=== PATIENT | male | born 1940 | race Caucasian/White ===

== ENCOUNTER → 2018-03-29 15:29 | Outpatient (CLI) | payer MEDICARE, OTHER, SELFPAY ==
[2018-03-29 18:49] LABS: RBC Urine None Seen (0-5/HPF)
[2018-03-29 19:04] LABS: Bilirubin Urine UA NEGATIVE (NEGATIVE); Color Urine UA YELLOW; Glucose Urine UA NEGATIVE (Normal); Ketones Urine UA NEGATIVE (NEGATIVE); Leukocyte Esterase Urine UA 2+ (NEGATIVE); Nitrite Urine UA Negative (Negative); Occult Blood Urine UA TRACE-LYSED (Negative); Protein Urine UA TRACE (Negative); Urobilinogen Urine UA 0.2 E.U./dL (0.2)
[2018-03-29 19:06] LABS: Appearance Urine UA SL CLOUDY
[2018-03-29 19:16] LABS: Bacteria Urine Moderate (10-30); Culture Indicated Urine Specimen Cultured; Squamous Epithelial Cell Urine None Seen; WBC Urine 30-100/HPF (0-5/HPF)
== END ==
PROVIDERS: PCP Family Medicine; Visit Provider Internal Medicine
DX: R30.0 Dysuria (principal)
CPT/HCPCS: 81001; 87077; 87086; 87186

== ENCOUNTER → 2018-04-09 10:07 | Outpatient (CLI) | payer MEDICARE, OTHER, SELFPAY ==
--- NOTE | 2018-04-09 10:10 | DI.US.S_ITS ---
PROCEDURE: US RENAL COMPLETE INDICATIONS: DYSURIA TECHNIQUE: Real-time scanning was performed of the kidneys and bladder, with image documentation. COMPARISON: None. FINDINGS: Kidneys: Kidneys are normal in size. Right kidney measures 12.4 cm long; left kidney measures 11.4 cm long. Right renal cortical thickness is 1.7 cm; left renal cortical thickness is 1.7 cm. Renal cortical echotexture is normal. No hydronephrosis or nephrolithiasis. No suspicious solid mass lesions. Bladder: Pre-void bladder volume is 151 mL. Post-void residual is 20 mL. Pre-void images demonstrate no intraluminal masses or stones. On pre-void images, bilateral ureteral jets are noted with color Doppler interrogation. (Of note, ureteral jets may not be detectable in up to 25% of cases due to insufficient differences in specific gravity between ureteral and bladder urine). Miscellaneous: No free pelvic fluid. IMPRESSION: Normal renal ultrasound, 20 cc post void residual within the bladder after initiation of the study at which time the prevoid volume was 151 cc. Dictated by: Abhishek Diaz M.D. on 04/09/2018 at 12:58 Approved by: Abhishek Diaz M.D. on 04/09/2018 at 12:58
== END ==
PROVIDERS: PCP Family Medicine; Visit Provider Internal Medicine
DX: R30.0 Dysuria (principal)
CPT/HCPCS: 76770

== ENCOUNTER → 2018-09-10 11:42 | Outpatient (CLI) | payer MEDICARE, OTHER, SELFPAY ==
[2018-09-10 12:05] LABS: Add Manual Diff / Slide Review NO; Basophils Percent Auto 0.5 % (0-2); Eosinophils Percent Auto 1.2 % (2-4); Hematocrit 41.8 % (41-53); Hemoglobin 14.2 g/dL (13.5-17.5); Lymphocytes Percent Auto 30.1 % (25-40); Mean Corpuscular HGB Conc 34.1 % (30-36); Mean Corpuscular Hemoglobin 30.9 PG (26-34); Mean Corpuscular Volume 90.5 fL (80-100); Monocytes Percent Auto 14.2 % (3-14); Neutrophils Absolute Auto 1700 /uL (1500-7000); Platelet Count 184 X10^3/uL (150-400); Red Blood Cell Count 4.62 X10^6/uL (4.5-5.9); Red Cell Distribution Width 13.6 % (11.6-14.8); White Blood Cell Count 3.1 X10^3/uL (4.5-11.0)
[2018-09-10 12:41] LABS: Gamma Glutamyl Transpeptidase 48 U/L (15-73)
== END ==
PROVIDERS: PCP Family Medicine; Visit Provider Family Medicine
DX: D50.9 Iron deficiency anemia, unspecified (principal); R74.8 Abnormal levels of other serum enzymes; T42.0X5A Adverse effect of hydantoin derivatives, initial encounter
CPT/HCPCS: 36415; 82977; 85025

== ENCOUNTER → 2023-08-13 14:59 | Outpatient (CLI) | payer OTHER, SELFPAY ==
[2023-08-13 18:34] LABS: Appearance Urine UA CLEAR; Bilirubin Urine UA NEGATIVE (NEGATIVE); Color Urine UA YELLOW; Glucose Urine UA NEGATIVE (Negative); Ketones Urine UA NEGATIVE (NEGATIVE); Leukocyte Esterase Urine UA NEGATIVE (NEGATIVE); Nitrite Urine UA NEGATIVE (Negative); Occult Blood Urine UA NEGATIVE (Negative); Protein Urine UA NEGATIVE (Negative); Urobilinogen Urine UA 0.2 E.U./dL (0.2); pH Urine UA 5.5 (4.5-8.0)
[2023-08-13 18:41] LABS: Bacteria Urine None Seen; Culture Indicated Urine Cult Not Indicated; RBC Urine 0-1/HPF (0-5/HPF); Squamous Epithelial Cell Urine 0-1 /HPF (0-5/HPF); WBC Urine None Seen (0-5/HPF)
== END ==
PROVIDERS: PCP Family Medicine; Referring Provider Family Medicine; Visit Provider Family Medicine
DX: R30.0 Dysuria (principal)
CPT/HCPCS: 81001

== ENCOUNTER → 2023-08-20 06:51 | Outpatient (CLI) | payer OTHER, SELFPAY ==
[2023-08-20 09:19] LABS: Add Manual Diff / Slide Review NO; Basophils Absolute Auto 0 /uL (0-100); Basophils Percent Auto 0.6 % (0-2); Eosinophils Absolute Auto 100 /uL (0-450); Eosinophils Percent Auto 2.1 % (2-4); Hematocrit 38.1 % (41-53); Lymphocytes Absolute Auto 900 /uL (1100-4500); Lymphocytes Percent Auto 27.3 % (25-40); Mean Corpuscular HGB Conc 34.3 % (30-36); Mean Corpuscular Hemoglobin 30.6 PG (26-34); Mean Corpuscular Volume 89.2 fL (80-100); Monocytes Absolute Auto 400 /uL (0-900); Monocytes Percent Auto 13.2 % (3-14); Neutrophils Absolute Auto 1900 /uL (1500-7000); Neutrophils Percent Auto 56.8 % (50-75); Platelet Count 179 X10^3/uL (150-400); Red Blood Cell Count 4.27 X10^6/uL (4.5-5.9); Red Cell Distribution Width 14.7 % (11.6-14.8); White Blood Cell Count 3.3 X10^3/uL (4.5-11.0)
[2023-08-20 09:44] LABS: Alanine Aminotransferase 18 IU/L (<50); Albumin Globulin Ratio 1.4 (1.0-2.8); Alkaline Phosphatase 99 U/L (38-126); Aspartate Aminotransferase 27 IU/L (17-59); BUN Creatinine Ratio 22.6 (6-22); Bilirubin Total 1.1 mg/dL (0.2-1.3); Blood Urea Nitrogen 19 mg/dL (9-20); Carbon Dioxide 27 mmol/L (22-32); Chloride 104 mmol/L (98-107); Estimated Glomerular Filt Rate > 60 mL/min (>60); Globulin 2.9 g/dL (1.7-4.1); Glucose 76 mg/dL (80-110); HEMOLYSIS < 15 (0-50); Potassium 4.1 mmol/L (3.4-5.1); Sodium 138 mmol/L (137-145); Total Protein 6.9 g/dL (6.3-8.2)
[2023-08-20 10:50] LABS: Prostate Specific Antigen Scrn 0.444 ng/mL (0.1-4.0)
[2023-08-20 10:52] LABS: Testosterone 294 ng/dL (71.8-623)
== END ==
PROVIDERS: PCP Family Medicine; Referring Provider Family Medicine; Visit Provider Family Medicine
DX: E03.9 Hypothyroidism, unspecified (principal); D64.9 Anemia, unspecified; Z12.5 Encounter for screening for malignant neoplasm of prostate; N40.0 Benign prostatic hyperplasia without lower urinary tract symptoms; E34.9 Endocrine disorder, unspecified
CPT/HCPCS: 36415; 80053; 84403; 84443; 85025; G0103

== ENCOUNTER → 2023-11-02 13:24 | Outpatient (CLI) | payer OTHER, SELFPAY ==
[2023-11-02 16:04] LABS: C-Reactive Protein Quant 0.6 mg/dL (<1.0)
[2023-11-02 16:11] LABS: Erythrocyte Sedimentation Rate 7 MM/HR (0-15)
[2023-11-02 17:08] LABS: Folate > 20.0 ng/mL (2.76-20.0); Vitamin B12 Reflex MMA if <400 834 pg/mL (239-931)
== END ==
PROVIDERS: PCP Family Medicine; Referring Provider Family Medicine; Visit Provider Family Medicine
DX: E53.8 Deficiency of other specified B group vitamins (principal); M06.9 Rheumatoid arthritis, unspecified; M25.561 Pain in right knee; G89.29 Other chronic pain; G72.9 Myopathy, unspecified
CPT/HCPCS: 36415; 82607; 82746; 85651; 86140

== ENCOUNTER → 2023-11-09 10:22 | Outpatient (CLI) | payer OTHER, SELFPAY ==
--- NOTE | 2023-11-09 10:23 | DI.CT.S_ITS ---
PROCEDURE: CT LUMBAR SPINE WO CON INDICATIONS: neuropathy, le weakness, hx of spinal surgery TECHNIQUE: Noncontrast 3 mm thick sections acquired from the T12 level to the sacrum. Sagittal and coronal reformats were constructed. For radiation dose reduction, the following was used: automated exposure control. COMPARISON: None. FINDINGS: Image quality: Excellent. Bones: Postsurgical changes from L4-5 posterior spinal fixation and discectomy. The hardware appears intact without surrounding fracture or lucency. Diffusely decreased osseous mineralization. Multilevel degenerative changes of the lumbar spine with disc height loss, vacuum disc phenomenon, degenerative endplate changes and spurring. Facet arthropathy is present. Probable moderate central canal stenosis and at L3-L4. There is no high-grade osseous neural foraminal stenosis. Soft tissues: No retroperitoneal masses or hematomas. Visualized aorta is normal in caliber. Atherosclerotic vascular calcifications. Left renal cyst with rim calcification. IMPRESSION: Multilevel degenerative changes of the lumbar spine status post L4-5 posterior spinal fixation and discectomy. There is probable moderate central canal stenosis at L3-L4. No high-grade osseous neural foraminal stenosis. Consider MRI for further evaluation. Dictated by: Angel Cabrera M.D. on 11/09/2023 at 13:20 Approved by: Angel Cabrera M.D. on 11/09/2023 at 13:26
--- NOTE | 2023-11-09 10:23 | DI.RAD.S_ITS ---
Bone Density Report Name: KASHMIR SANDOVAL Age: 82 Sex: Male Ethnicity: White Date of : 1940 Indication: osteopenia; prior fracture; Referring Provider: AMBER CHAPIN Study: Bone densitometry was performed. Exam Date: November 09, 2023 Accession number: [id number] Bone Density: Region BMD T-score Z-score Classification AP Spine(L1, L2) 1.035 0.5 1.1 Normal Femoral Neck (Left) 0.508 -3.1 -1.4 Osteoporosis Total Hip (Left) 0.741 -1.6 -0.7 Osteopenia Total Forearm (Left) 0.580 0.0 0.1 Normal 1/3 Forearm (Left) 0.762 1.1 1.3 Normal UD Forearm (Left) 0.397 -0.8 -0.6 Normal World Health Organization criteria for BMD impression classify patients as: Normal (T-score at or above -1.0), Osteopenia (T-score between -1.0 and -2.5), or Osteoporosis (T-score at or below -2.5). 10-year Fracture Risk: FRAX not reported because: Some T-score for Spine Total or Hip Total or Femoral Neck at or below -2.5 Prior hip or vertebral fracture Previous Exams: -- Region Exam Age BMD T-score BMD Change BMD Change Date g/cm2 vs Baseline vs Previous -- AP Spine (L1-L2) 11/09/2023 82 1.035 0.5 0.233 (29.0%)# 0.233 (29.0%)# 10/30/2016 75 0.802 -1.6 Total Hip(Left) 11/09/2023 82 0.741 -1.6 -0.007 (-0.9%)# -0.007 (-0.9%)# 10/30/2016 75 0.748 -1.6 -- *Denotes significance at 95% confidence level, LSC for AP Spine = 0.022 g/cm2, LSC for Total Hip = 0.027 g/cm2 # Denotes dissimilar scan types or analysis methods Impression: The patient has established osteoporosis, based on the Left Femoral Neck T-score and the existence of a prior fracture. The patient has risk factors, including: previous fracture. No significant bone loss was observed. Discussion: HIGH RISK OF FRACTURE. BONE DENSITY IS UNDESIRABLY LOW AT ONE OR MORE SKELETAL SITES, CONSISTENT WITH OSTEOPOROSIS. This patient's lowest T-score, in a patient who has previously fractured, meets the World Health Organization's (WHO) criteria for severe osteoporosis. In untreated patients, the risk of osteoporotic fracture increases approximately two-fold for each 1.0 SD decrease in T-score. Low bone density is not the only risk factor for fracture; also consider factors such as patient's age, frailty or poor health, risk of falling, risk of injury, previous osteoporotic fracture, family history of osteoporosis, cigarette smoking, low body weight, etc. Not everyone with low bone mineral density has osteoporosis; osteomalacia and other metabolic bone disorders should also be considered. Patients who have osteoporosis should be evaluated for specific diseases and conditions (secondary causes) that may cause or contribute to bone loss. The National Osteoporosis Foundation (NOF) recommends pharmacologic intervention for men with BMD at this level (a T-score of -2.5 or below). The patient should follow a healthful lifestyle (good nutrition with adequate calcium and vitamin D, and appropriate weight-bearing exercise). Follow-Up: Consider a repeat BMD and Vertebral Fracture Assessment (VFA) exam in 2 years or sooner if medically necessary, to reassess this patient's status. Reported by: CORBIN GARCIA MD on 11/09/2023 11:01:00 AM.
== END ==
PROVIDERS: PCP Family Medicine; Referring Provider Family Medicine; Visit Provider Family Medicine
DX: M81.0 Age-related osteoporosis without current pathological fracture (principal); M47.816 Spondylosis without myelopathy or radiculopathy, lumbar region; M06.9 Rheumatoid arthritis, unspecified; G62.9 Polyneuropathy, unspecified; M54.9 Dorsalgia, unspecified; G89.29 Other chronic pain; R29.898 Other symptoms and signs involving the musculoskeletal system; F17.200 Nicotine dependence, unspecified, uncomplicated; Z98.890 Other specified postprocedural states
CPT/HCPCS: 72131; 77080; 77081

== ENCOUNTER → 2024-02-29 15:31 | Outpatient (CLI) | payer OTHER, SELFPAY ==
--- NOTE | 2024-02-29 15:32 | DI.RAD.S_ITS ---
PROCEDURE: XR CHEST 2V INDICATIONS: sob TECHNIQUE: 2 views of the chest were acquired. COMPARISON: [facility], , CHEST 2 VIEW, 05/31/2015, 15:20. FINDINGS: Surgical changes and devices: None. Lungs and pleura: Lungs are clear. No pleural effusions or pneumothorax. Mediastinum: Mediastinal contours are normal. Heart size is normal. Bones and chest wall: No suspicious bony abnormalities. Soft tissues appear unremarkable. IMPRESSION: No acute cardiopulmonary abnormality is seen. Dictated by: Santo Alexander M.D. on 02/29/2024 at 21:56 Approved by: Santo Alexander M.D. on 02/29/2024 at 21:57
== END ==
PROVIDERS: PCP Family Medicine; Referring Provider Family Medicine; Visit Provider Family Medicine
DX: R06.02 Shortness of breath (principal)
CPT/HCPCS: 71046

== ENCOUNTER → 2024-08-05 07:12 | Outpatient (CLI) | payer MEDICARE, SELFPAY ==
--- NOTE | 2024-08-05 07:13 | DI.MRI.S_ITS ---
PROCEDURE: MR LUMBAR SPINE WO CON INDICATIONS: follow-up CT; leg weakness, persistent TECHNIQUE: Noncontrast sagittal T1 spin echo and T2 fast echo, sagittal STIR, and T2 fast spin echo through the lumbar spine. In cases with scoliosis, additional coronal T2 fast spin echo may be performed. COMPARISON: [facility], MR, L-SPINE WITHOUT CONTRAST, 03/24/2014, 11:11. [facility], CT, CT LUMBAR SPINE WO CON, 11/09/2023, 10:02. FINDINGS: Image quality: Excellent. Alignment and Curvature: Bilateral posterior lateral wai and pedicle screw fixation at L4-L5. Trace retrolisthesis of T12 on L1 and L1 on L2. Bone Marrow: Marrow is of normal overall signal. No acute vertebral body compression fractures. Spinal Cord: Conus medullaris terminates at the bottom of L2 level. Visualized cord demonstrates normal signal and size. Paraspinous Soft Tissues: No paravertebral masses. T12-L1: Trace retrolisthesis. Posterior disc post osteophyte. Mild facet hypertrophy. No significant canal stenosis. [id number] right foraminal stenosis. L1-L2: Trace retrolisthesis. Facet hypertrophy. No canal stenosis or foraminal stenosis. L2-L3: Disc bulge. Facet and ligament hypertrophy. Moderate canal stenosis. [id number] bilateral foraminal narrowing. L3-L4: Chronic disc height loss. Facet hypertrophy. Mild canal stenosis. Mild bilateral foraminal stenosis. L4-L5: Remote posterior lateral fusion. No canal stenosis. Bilateral facet hypertrophy. Mild bilateral foraminal narrowing. L5-S1: Disc bulge. Facet hypertrophy. Mild stenosis, involving the right side of the canal. Mild bilateral foraminal stenosis. IMPRESSION: 1. Multilevel underlying facet arthropathy. 2. Remote posterior lateral fusion at L4-L5. 3. Multilevel canal stenosis, moderate at L2-L3, mild at L3-L4, and mild involving the right side of the canal at L5-S1. Dictated by: Gregorio Camacho M.D. on 08/05/2024 at 12:07 Approved by: Gregorio Camacho M.D. on 08/05/2024 at 12:17
== END ==
PROVIDERS: PCP Family Medicine; Referring Provider Family Medicine; Visit Provider Family Medicine
DX: M47.816 Spondylosis without myelopathy or radiculopathy, lumbar region (principal); M47.817 Spondylosis without myelopathy or radiculopathy, lumbosacral region; M48.061 Spinal stenosis, lumbar region without neurogenic claudication; M48.07 Spinal stenosis, lumbosacral region; M54.50 Low back pain, unspecified; R29.898 Other symptoms and signs involving the musculoskeletal system; N40.1 Benign prostatic hyperplasia with lower urinary tract symptoms; R39.12 Poor urinary stream; G89.29 Other chronic pain; Z98.1 Arthrodesis status; Z98.890 Other specified postprocedural states
CPT/HCPCS: 72148; 81002; 99213

== ENCOUNTER → 2024-08-12 08:39 | Outpatient (CLI) | payer OTHER, SELFPAY ==
[2024-08-12 09:49] LABS: Prostate Specific Antigen Scrn 0.481 ng/mL (0.1-4.0)
== END ==
LOC: LAB 08:40
PROVIDERS: PCP Family Medicine; Referring Provider Urology; Visit Provider Urology
DX: Z12.5 Encounter for screening for malignant neoplasm of prostate (principal)
CPT/HCPCS: 36415; G0103

== ENCOUNTER → 2024-08-16 11:02 | Outpatient (CLI) | payer OTHER, SELFPAY ==
[2024-08-18 10:36] LABS: Fecal Immunochemical Test Negative (Negative)
== END ==
LOC: LAB 11:04
PROVIDERS: PCP Family Medicine; Referring Provider Surgery; Visit Provider Surgery
DX: Z12.11 Encounter for screening for malignant neoplasm of colon (principal); Z86.0100 Personal history of colon polyps, unspecified
CPT/HCPCS: 82274